=== PATIENT | male | born 1970 | race Caucasian/White ===

== ENCOUNTER 2018-12-14 20:53 | Emergency (ER) | payer MEDICAID ==
[~2018-12-14] VITALS: Ht 170.2 cm; Wt 74.6 kg
--- NOTE | 2018-12-14 21:03 | NUR ---
Pt encouraged to stop screaming into hallway, when asked about needs, pt states "just turn the light down" pt educated he was given the call button and instructed to use it for any needs, encouraged to use it next time he needs something.
--- NOTE | 2018-12-14 21:30 | NUR ---
Pt requesting food and water, pt educated on ED process and must see and MD for ok first, and since pt c/o nausea, vomiting, pt is to be NPO at this time. Pt upset with this answer
[2018-12-14] MEDS ORDERED: PANTOPRAZOLE 40 MG IV IVPush ONE (22:00)
[2018-12-14] MEDS ORDERED: PLEASE ENTER ALLERGIES MC SCH (22:00)
[2018-12-14] MEDS ORDERED: ONDANSETRON 2MG/ML, 2ML IVPush ONE (22:00)
--- NOTE | 2018-12-14 22:11 | NUR ---
TASK RN: IV ESTABLISHED. PT TOOK SELF OFF MONITORING, "I DON'T NEED THAT CRAP". NAD NOTED. PT PWD; RR WNL.
[2018-12-14 22:13] LABS: BASOPHILS # (AUTO) 0.11 x10^3/uL (0-0.1); BASOPHILS % (AUTO) 2 % (0-1); EOSINOPHILS # (AUTO) 0.55 x10^3/uL (0-0.4); EOSINOPHILS % (AUTO) 10 % (1-7); LYMPHOCYTES # (AUTO) 1.11 x10^3/uL (1-3.4); LYMPHOCYTES % (AUTO) 21 % (22-44); MD NO; MEAN CORPUSCULAR HEMOGLOBIN 28.7 pg (27.5-34.5); MEAN CORPUSCULAR HGB CONC 31.4 g/dL (33.2-36.2); MEAN CORPUSCULAR VOLUME 91.3 fL (81-97); MEAN PLATELET VOLUME 7.3 fL (7.4-10.4); MONOCYTES # (AUTO) 0.51 x10^3/uL (0.2-0.8); MONOCYTES % (AUTO) 10 % (2-9); NEUTROPHILS # (AUTO) 3.13 x10^3/uL (1.8-6.8); NEUTROPHILS % (AUTO) 58 % (42-75); PLATELET COUNT 314 x10^3/uL (130-400); RED BLOOD COUNT 4.31 x10^6/uL (4.38-5.82); RED CELL DISTRIBUTION WIDTH 17.3 % (9.4-14.8)
[2018-12-14 22:26] LABS: ALANINE AMINOTRANSFERASE 37 U/L (12-78); ALBUMIN 4.1 g/dL (3.4-5.0); ANION GAP 9 mmol/L (5-15); CALCIUM 8.7 mg/dL (8.5-10.1); CHLORIDE 108 mmol/L (98-107); CREATININE 1.04 mg/dL (0.7-1.3)
[2018-12-14] MEDS ORDERED: ONDANSETRON 2MG/ML, 2ML ONE (22:37)
[2018-12-14] MEDS ORDERED: PANTOPRAZOLE 40 MG IV ONE (22:37)
[2018-12-14 22:38] LABS: ALKALINE PHOSPHATASE 63 U/L (45-117); BILIRUBIN,TOTAL 0.2 mg/dL (0.2-1.0); TOTAL PROTEIN 8.4 g/dL (6.4-8.2)
[2018-12-14 22:49] VITALS: BP 145/97
--- NOTE | 2018-12-14 22:51 | NUR ---
Pt crying in room, requesting food, "Im lynne hungry" pt again educated on NPO process until all results are back to due to cheif complaint of nausea/vomiting
--- NOTE | 2018-12-14 23:08 | NUR ---
Back from [place]
[2018-12-14] MEDS ORDERED: OMNIPAQUE 350 MG/ML, 100ML BOTTLE ONE (23:11)
--- NOTE | 2018-12-14 23:36 | NUR ---
Pt upset about discharge, IV removed, pt getting dressed.
--- NOTE | 2018-12-14 23:47 | NUR ---
Pt appears to have eloped upon dc. IV was removed, all belongings in room gone.
== END 2018-12-14 23:49 | disposition left against medical advice (07) ==
LOC: ED 23:43
DX: K22.6 Gastro-esophageal laceration-hemorrhage syndrome (principal); F10.20 Alcohol dependence, uncomplicated; Y90.9 Presence of alcohol in blood, level not specified
CPT/HCPCS: 36415; 74177; 80053; 80307; 83690; 85025; 86850; 86900; 99284; Q9967